=== PATIENT | female | born 1980 | race Caucasian/White ===

== ENCOUNTER 2021-11-17 11:21 | Outpatient (CLI) | payer OTHER, SELFPAY ==
--- NOTE | 2021-11-17 11:31 | US_ITS ---
STUDY: ULTRASOUND OF THE FEMALE PELVIS - COMPLETE REASON FOR EXAM: Female, 41 years old. Abnormal uterine bleeding, three-month follow-up. LMP: 10/27/2021. TECHNIQUE: Transabdominal and Transvaginal TECHNICAL QUALITY: Adequate. COMPARISON: None. FINDINGS: The uterus is anteverted and is in a midline position. The uterus measures 1 x 5.0 cm. There is a Nabothian cyst of the cervix. The endometrium measures 6.1 mm in thickness, and is fluid distended and mildly heterogenous. There is a questionable 1.0 x 0.8 x 1.3 cm hyperechoic mass in the anterior endometrial wall. This is best seen on image 38 of the transvaginal images.. There is a 2.2 x 1.5 x 1.4 cm subserosal fibroid in the posterior fundus. I.U.D. - The patient does not have an I.U.D. The right ovary is visualized. The right ovary measures 3.8 x 2.6 x 1.7 cm. There are multiple follicles of the right ovary without a dominant cyst. There is no visualized right adnexal mass or complex lesion. There is normal arterial and normal venous vascularity. The left ovary is visualized. The left ovary measures 4.5 x 2.1 x 3.2 cm. There are multiple follicles of the left ovary with a dominant 3.3 x 1.9 x 1.6 cm simple cyst.. There is no visualized left adnexal mass or complex lesion. There is normal arterial and normal venous vascularity. There is no fluid in the cul-de-sac. The urinary bladder appears grossly normal. Polycystic ovary disease: No. US/Transvaginal Non- IMPRESSION: 1. Minimal fluid in endometrial cavity. There is question of a mass in the anterior fundal endometrium. 2. Left ovarian cyst. Electronically Signed: Vincent Dempsey DO at 16:59 EST ,
--- NOTE | 2021-11-17 11:31 | US_ITS ---
STUDY: ULTRASOUND OF THE FEMALE PELVIS - COMPLETE REASON FOR EXAM: Female, 41 years old. Abnormal uterine bleeding, three-month follow-up. LMP: 10/27/2021. TECHNIQUE: Transabdominal and Transvaginal TECHNICAL QUALITY: Adequate. COMPARISON: None. FINDINGS: The uterus is anteverted and is in a midline position. The uterus measures 1 x 5.0 cm. There is a Nabothian cyst of the cervix. The endometrium measures 6.1 mm in thickness, and is fluid distended and mildly heterogenous. There is a questionable 1.0 x 0.8 x 1.3 cm hyperechoic mass in the anterior endometrial wall. This is best seen on image 38 of the transvaginal images.. There is a 2.2 x 1.5 x 1.4 cm subserosal fibroid in the posterior fundus. I.U.D. - The patient does not have an I.U.D. The right ovary is visualized. The right ovary measures 3.8 x 2.6 x 1.7 cm. There are multiple follicles of the right ovary without a dominant cyst. There is no visualized right adnexal mass or complex lesion. There is normal arterial and normal venous vascularity. The left ovary is visualized. The left ovary measures 4.5 x 2.1 x 3.2 cm. There are multiple follicles of the left ovary with a dominant 3.3 x 1.9 x 1.6 cm simple cyst.. There is no visualized left adnexal mass or complex lesion. There is normal arterial and normal venous vascularity. There is no fluid in the cul-de-sac. The urinary bladder appears grossly normal. Polycystic ovary disease: No. US/Pelvic (Non ) IMPRESSION: 1. Minimal fluid in endometrial cavity. There is question of a mass in the anterior fundal endometrium. 2. Left ovarian cyst. Electronically Signed: Vincent Dempsey DO at 16:59 EST ,
== END 2021-11-17 23:59 | disposition home or self-care (01) ==
LOC: US 11:29
PROVIDERS: PCP Family Medicine; Referring Provider Obstetrics & Gynecology; Visit Provider Obstetrics & Gynecology
DX: N93.9 Abnormal uterine and vaginal bleeding, unspecified (principal)
CPT/HCPCS: 76830; 76856

== ENCOUNTER 2021-11-30 13:40 | Day surgery (SDC) | payer OTHER, SELFPAY ==
[2021-11-26 13:39] LABS: Hematocrit 42.8 % (37-47); Hemoglobin 13.9 g/dL (12.0-15.0); Mean Corp Hgb Conc 32.5 g/dL (32-36); Mean Corpuscular Hgb 27.6 pg (27.0-32.0); Mean Corpuscular Volume 84.9 fL (81-99); Mean Platelet Vol. 9.7 fl (6.2-12.0); Platelet Count 373 K/mm3 (150-450); RBC Distribution Width SD 43.2 fl (35.1-43.9); Red Blood Count 5.04 M/mm3 (4.2-5.4); White Blood Count 8.6 K/mm3 (4.4-11.0)
[2021-11-30] VITALS (7 sets, daily range): BP systolic 103–120; BP diastolic 71–85; PULSE 74–96; RESP 16; TEMP 36.5–36.7; O2SAT 96–100; BMI 30.7
--- NOTE | 2021-11-30 | EMB_PTH ---
PATIENT: CORBY HARO LOC: [facility] [place][id number] AGE/SX: 41/F ROOM: RE11/30/[address]: Dr. 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 Transition endometrium. AM:antonio 12/02/2021 MICROSCOPIC DESCRIPTION Slides are reviewed. GROSS DESCRIPTION Received in fixative is one container labeled with the patient's name and designated endometrial curettings. The specimen consists of multiple irregular fragments of light to dark jennings soft tissue that in aggregate measure 2.2 x 2 x 0.2 cm. The specimen is totally submitted in one cassette. / AM:antonio 12/01/2021 TC:5 CPT: 23042
--- NOTE | 2021-11-30 08:20 | HP.PCM_ITS ---
History and Physical Date of Admission: 11/30/21 :1980 Provider:Dr. Gena Harris, DOAge/Sex: 41/F [facility] Vital Signs 11/19/21 14:44 Height 5 ft 3 in Weight: 175 lb BMI 30.9 BP 134/90 H Intake Visit Reasons: Consult from US possible surgery Disability Program Navigator Required: No Is patient in pain?: No Allergies No Known Allergies Allergy (Verified 11/19/21 14:45) Medications medroxyprogesterone 10 mg tablet 10 mg PO DAILY 30 Days #30 tab 08/13/21 [Rx Confirmed 11/19/21] ibuprofen 800 mg tablet 800 mg PO Q8H PRN 7 Days #21 tab 11/19/21 [Rx Confirmed 11/19/21] methocarbamol 750 mg tablet 750 mg PO Q8H 3 Days #9 tab 11/19/21 [Rx Confirmed 11/19/21] Post menopausal: No Patient : No : No PFSH Surgical History H/O section H/O wisdom tooth extraction History of dental surgery Hx of appendectomy Family History Other Diabetes Hypertension Social History adopted: No household members: family housing: house number of children: 2 current occupation: [employer] pets and animals: Yes Smoking Status: Never smoker second hand exposure: No alcohol intake: current substance use type: does not use seatbelt use: always do you feel safe at home: Yes additional social history: - [facility] Details: CORBY HARO is a 41 year old who presents for discussion about hysteroscopy D&C. She states that she is ready to proceed at this time mostly because she is experiencing lower pelvic pain and she is hoping the polyp in her uterus is causing it. Ultrasound showed an unknown mass like structure at the fundus that is approximately 1 cm. Pregancy History 2 Elective abortions Hx Para 2 Spontaneous abortions Hx # Term Pregnancies Ectopic pregnancies Hx # Pregnancies Multiple births # of living children 2 Past Pregnancies Del. Date Name GA/Weeks Outcome Route Bth Weight Infant Gen Labor Lgth Anesthesia Del Locatn Provider FOB Unknown 2004- Cynthia Unknown 2012- Hillary ROS Const ROS Unobtainable: All systems reviewed & are unremarkable except as noted in H Resp Resp: Reports system reviewed and no additional complaints, except as documented; Denies cough GI GI: Reports as per HPI Psych Psych: Reports system reviewed and no additional complaints, except as documented Exam Const General: cooperative, healthy appearing, comfortable and no acute distress Resp Effort & Inspection: normal respiratory effort Skin General: no rashes or lesions noted Psych Appearance: grossly normal Speech and Movement: speech and movement normal Coding Level of Care Code Off vis,est,level 4 Diagnoses Menorrhagia N92.0 Pelvic pain R10.2 Assessment and Plan Assessment and Plan (1) Menorrhagia: Status: Acute Comment: 1 cm polyp in endometrium on ultrasound 07/29/21 (2) Pelvic pain: Status: Acute Plan - Dr. Gena Harris DO: plan to proceed with hysteroscopy D&C - risks, benefits, and alternative discussed consent form signed. pt prefers muscle relaxor and motrin for post op pain control. rx sent to pharmacy. plan for surgery on 11/30/21 Plan Details Other Medications: New: methocarbamol 750 mg PO Q8H 3 days 9 tabs 0RF cramping ibuprofen 800 mg PO Q8H 7 days PRN 21 tabs 0RF pain UPDATE- I have seen the patient and performed any clinically relevant updates to the history and physical exam. Gena Harris DO
[2021-11-30] MEDS: Lactated Ringers 1,000 ML 125 ML IV (14:08)
[2021-11-30 14:12] LABS: Internal QC Validated? YES +Cl - CLEAR BKGD; Pregnancy, Urine Negative Negative
--- NOTE | 2021-11-30 15:26 | PCM.DC ---
Discharge Instructions Diet Discharge Diet: No restrictions Activity Discharge Activity: Return to Normal Activity, May Shower and May Take a Tub Bath (after 1 week) May resume sexual activity in: 1-2 weeks Weight Bearing Status: Weight bearing as tolerated Lifting Restrictions: none Dressing / Incision Call your doctor if you observe: Fever of 101 or Higher, Using more than 1 pad per hour, Shortness of breath and Uncontrolled pain Follow Up Care Please Follow Up With: Gena Harris DO When: Call [phone] to schedule appointment. Test Results: Test results from this visit will be discussed in further detail at your follow-up appointment, if applicable. Discharge Plan Admission Primary Reason for Your Visit: hysteroscopy D&C Attending Provider: Gena Harris Primary Care Provider: Molly Leon Discharge Orders/Prescriptions Prescriptions: New ibuprofen 800 mg tablet 800 mg PO Q8H PRN (Reason: pain) 7 Days Qty: 30 RF: 0 Continued medroxyprogesterone [Provera] 10 mg tablet 10 mg PO DAILY 30 Days Qty: 30 RF: 3 Referrals / Follow Up: Molly Leon [Primary Care Provider] - Disposition Disposition (needs filled in before D/C Order can be placed): Home, Self Care
--- NOTE | 2021-11-30 15:28 | PCM.OP.BLANK ---
Problems Associated Problem List Diagnoses (1) Menorrhagia: Operative Report Date of Procedure: 11/30/21 preoperative diagnosis: abnormal uterine bleeding, ultrasound finding of mass at fundus Postoperative diagnosis:abnormal uterine bleeding, ultrasound finding of mass at fundus Surgeon: Dr. Gena Harris DO EBL: minimal urine output: 30cc findings: atrophic appearing uterus specimens removed: endometrial curettings Details of the procedure: Patient was prepped and draped in a normal sterile fashion under MAC anesthesia. A weighted speculum was placed in the vagina and the anterior lip of the cervix was grasped with a single-tooth tenaculum. A paracervical block was placed with 1% lidocaine. Cervix was progressively dilated to allow passage of a 5 mm hysteroscope. The lining was fully visualized and noted to have a small polyp like structures at the fundus and posterior aspect. Uterine sounded to 8 cm. Curettage was performed and specimen was sent to pathology. All instruments were removed from the vagina and excellent hemostasis was noted. Patient was awoken and taken to recovery in stable condition. Multi Select Codes Urinary/Genital Urinary/Genital CPT Codes: 65496 Hysteroscopy,EMC, Polypectomy
[2021-11-30] MEDS: Lidocaine 1% (20 ml mdv) 20 ML Vial (15:50)
[2021-11-30] MEDS: Ketorolac 30 MG/ML Syringe IV (16:18)
== END 2021-11-30 23:59 | disposition home or self-care (01) ==
LOC: SDC 13:41 → AC 13:42
PROVIDERS: PCP Family Medicine; Referring Provider Obstetrics & Gynecology; Visit Provider Obstetrics & Gynecology
PROC: 0UDB8ZZ Extraction of Endometrium, Via Natural or Artificial Opening Endoscopic (ICD-10-PCS; CPT 58558; principal; 2021-11-30 15:10)
DX: N85.01 Benign endometrial hyperplasia (principal); N92.0 Excessive and frequent menstruation with regular cycle
CPT/HCPCS: 58558; 00952; 36415; 81025; 85027; 86850; 86900; 86901; 87426; 88305; C9803; J7120; J2405

== ENCOUNTER 2022-05-03 16:38 | Observation (INO) | payer OTHER, SELFPAY ==
[2022-05-03] VITALS (22 sets, daily range): BP systolic 93–127; BP diastolic 61–81; PULSE 61–92; RESP 11–18; TEMP 36.3–37.6; O2SAT 93–100; BMI 29.8
[2022-05-03] MEDS: Scopolamine 1mg/72hr Patch 1 PATCH TD (06:25)
[2022-05-03] MEDS: Phenazopyridine 95 MG Tablet 190 MG PO (06:26)
[2022-05-03] MEDS: Acetaminophen 500 MG Tablet 1000 MG PO ×3 (06:26→23:03)
[2022-05-03] MEDS: Celecoxib 200 MG Capsule 400 MG PO (06:26)
[2022-05-03] MEDS: Gabapentin 600 MG Tablet PO (06:27)
[2022-05-03] MEDS: Enoxaparin 40 MG/0.4 ML Syringe SC (06:28)
[2022-05-03] MEDS: dexAMETHasone 10 MG/ML Vial 8 MG IV (06:28)
[2022-05-03] MEDS: Lactated Ringers 1,000 ML 40 ML IV ×2 (06:45→13:41)
[2022-05-03 06:46] LABS: Hematocrit 47.1 % (37-47); Hemoglobin 15.6 g/dL (12.0-15.0); Mean Corp Hgb Conc 33.1 g/dL (32-36); Mean Corpuscular Hgb 29.2 pg (27.0-32.0); Mean Corpuscular Volume 88.2 fL (81-99); Mean Platelet Vol. 9.6 fl (6.2-12.0); Platelet Count 354 K/mm3 (150-450); RBC Distribution Width CV 12.3 % (11.6-14.6); RBC Distribution Width SD 39.7 fl (35.1-43.9); Red Blood Count 5.34 M/mm3 (4.2-5.4)
[2022-05-03 06:50] LABS: Internal QC Validated? YES +Cl - CLEAR BKGD
[2022-05-03 06:51] LABS: Pregnancy, Urine Negative Negative
[2022-05-03 06:56] LABS: Magnesium 2.1 mg/dL (1.6-2.6)
--- NOTE | 2022-05-03 07:18 | PCM.HP.BLA ---
History and Physical Date of Admission: 05/03/22 R#: [id number] Acct: [id number] Name:CORBY BEAULIEU Rep #: [id number] : 1980 ? ? Provider: Dr. Gena Harris DO Age/Sex:? 42/F ? ? [place] [facility] [place]: Signed Intake Vital Signs ? 03/25/2216:00 04/08/2212:58 04/08/2213:00 Height 5 ft 3 in 5 ft 3 in 5 ft 3 in Weight: ? 170 lb 6 oz ? BMI ? 30.2 ? BP ? 110/70 ? Intake Visit Reasons:?decided to proceed with surgical management Weir Fisherman Required: No Is patient in pain?: No Allergies No Known Allergies Allergy (Verified 04/08/22 12:58) Medications medroxyprogesterone 10 mg tablet (Provera) 10 mg PO DAILY 30 days #30 tabs 12/17/21 [Rx Confirmed 04/08/22] Post menopausal: No Patient : No : No PFSH Medical History?(Updated 04/08/22 @ 15:[address] Gena Harris, ) Heartburn History of echocardiogram Migraine headache PONV (postoperative nausea and vomiting) Surgical History?(Updated 04/08/22 @ 15:[address] Gena Harris DO) H/O section H/O wisdom tooth extraction History of dental surgery Hx of appendectomy S/P dilation and curettage (~11/30/21) Family History? Other Diabetes Hypertension Social History? adopted:? No household members:? family housing:? house number of children:? 2 current occupation:? [employer] pets and animals:? Yes Smoking Status:? Never smoker second hand exposure:? No alcohol intake:? current substance use type:? does not use seatbelt use:? always do you feel safe at home:? Yes additional social history:? - [facility] decided to proceed with surgical management Details: CORBY HARO is a 42 year old who presents for discussion about ongoing pelvic pain. She is status post D&C removal of uterine polyp, which contains simple non-atypical hyperplasia and she is taking progesterone therapy for this. She is ready to proceed with a more definitive treatment option to avoid use of progesterone and also help with ongoing pelvic pain issues. There is an ongoing suspicion for either scar tissue pain from prior sections vs endometriosis. The ultrasound shows a 9.5 x 4.87 x 6.05 cm uterus Pregancy History ? ? ? 2 ? Elective abortions ? Hx Para ? ? ? 2 ? Spontaneous abortions ? Hx # Term Pregnancies ? Ectopic pregnancies ? Hx # Pregnancies ? Multiple births ? # of living children ? ? ? 2 Past Pregnancies Del. Date Name GA/Weeks Outcome Route Bth Weight Gen Labor Lgth Anesthesia Del Locatn Provider FOB Unknown 2003- Cynthia ? Unknown 2012- Hillary ? ROS Const ROS Unobtainable: All systems reviewed & are unremarkable except as noted in H Resp Resp: Reports system reviewed and no additional complaints, except as documented; Denies cough GI GI: Reports as per HPI Psych Psych: Reports system reviewed and no additional complaints, except as documented Exam Const General: cooperative, healthy appearing, comfortable and no acute distress Resp Effort & Inspection: normal respiratory effort Skin General: no rashes or lesions noted Psych Appearance: grossly normal Speech and Movement: speech and movement normal Coding Level of Care Code Off vis,est,level 5 Diagnoses History of dilation and curettage? Z98.890 Migraines? G43.909 Seizures? R56.9 Menorrhagia? N92.0 Pelvic pain? R10.2 H/O section? Z98.891 Hx of appendectomy? Z90.49 Endometrial hyperplasia without atypia? N85.00 Assessment and Plan Assessment and Plan (1) History of dilation and curettage: ?Status:?Acute ?Comment: for abnormal uterine thickening. finding was benign hormonal affect (2) Migraines: ?Status:?Acute (3) Seizures: ?Status:?Acute ?Comment: had mini stoke like symptoms in 2019- r/o stroke questioned whether is was a seizure of not; Neurologist- Dr. Nuria Butterfield (4) Menorrhagia: ?Status:?Acute ?Comment: 1 cm polyp in endometrium on ultrasound 07/29/21 (5) Pelvic pain: ?Status:?Acute (6) H/O section: ?Status:?Acute ?Comment: 2003, 2012 (7) Hx of appendectomy: ?Status:?Acute ?Comment: 1990 (8) Endometrial hyperplasia without atypia: ?Status:?Acute Plan After discussing the patient's diagnosis and treatment plan options, patient wishes to proceed with surgical management.? I have discussed with the patient the risks, benefits, and alternatives of the procedure which include but are not limited to risks of anesthesia, bleeding, infection, possible damage to bowel, bladder, or surrounding vasculature which could lead to additional surgery to evaluate any complications.? Patient agrees to procedure and wishes to proceed.? ACOG/uptodate references given for additional information regarding procedure.? after a very long discussion about surgical options vs non-surgical options, the plan is to proceed with a total robotic hysterectomy, bilateral salpingectomy, and cystoscopy. UPDATE- I have seen the patient and performed any clinically relevant updates to the history and physical exam. Gena Harris, DO
--- NOTE | 2022-05-03 07:21 | DCINST_ITS ---
Discharge Instructions Diet Discharge Diet: No restrictions Activity May resume sexual activity in: 6 weeks Weight Bearing Status: Full weight bearing Dressing / Incision Call your doctor if your incision/area has: Continuous Slow Oozing, Sudden Increased Bleeding, Increased Pain/ Swelling, Increased Redness and Foul Smelling Discharge Call your doctor if you observe: Fever of 101 or Higher, Using more than 1 pad per hour, Shortness of breath, Chest pain and Uncontrolled pain Suture Line Care: Avoid Pulling/Pushing and Avoid Pinching/Bending Remove Dressing in: 1 week (if present) Cleanse incision/area with: Soap & Water and Keep Dressing Clean & Dry Follow Up Care Please Follow Up With: Gena Harris DO When: Call to make an appointment with your doctor for a postop visit in 2 and 6 weeks Test Results: Test results from this visit will be discussed in further detail at your follow- up appointment, if applicable. Discharge Plan Admission Primary Reason for Your Visit: hysterectomy Attending Provider: Gena Hraris Primary Care Provider: Molly Leon Discharge Orders/Prescriptions Prescriptions: New ibuprofen 600 mg tablet 600 mg PO Q6H PRN (Reason: pain) 7 Days Qty: 28 0RF Rx Instructions: one tab every 6 hrs as needed for mild to moderate pain oxycodone-acetaminophen [Percocet] 5-325 mg tablet 1 tab PO Q4H PRN (Reason: pain) 7 Days Qty: 30 0RF Discontinued medroxyprogesterone [Provera] 10 mg tablet 10 mg PO DAILY 30 Days Qty: 30 12RF Referrals / Follow Up: Molly Leon [Primary Care Provider] - Disposition Disposition (needs filled in before D/C Order can be placed): Home, Self Care
--- NOTE | 2022-05-03 07:30 | HYST_PTH ---
PATIENT: CORBY HARO LOC: [facility] U#:[id number] AGE/SX: 42/F ROOM: PA305 RE05/03/[address]: Dr. Gena Harris DO : 1980 BED: 1 DIS: 05/04/2022 SPEC #: [id number] RECD: 05/03/22 11:20 STATUS: MITA GARZARohan #: [id number] DEBBIE: 05/03/22 07:[address]: Gena Harris DEPT: SURGICAL PATHOLOGY RECD BY: Dale Michael ENTERED: 05/03/22 11:56 SP TYPE: HYSTERECT OTHR DR: Molly Leon Tissues: Uterus, NOS Procedures: Surgery Specimen Level V HEADER OPERATION: ERAS, laparoscopic robotic hysterectomy, bilateral salpingectomy PRE-OP DIAGNOSIS: Menorrhagia, pelvic pain TISSUE SUBMITTED: Uterus, cervix, bilateral fallopian tubes MICROSCOPIC DIAGNOSIS Uterus, cervix and bilateral fallopian tubes, hysterectomy and bilateral salpingectomy: Cervix ? chronic cystic cervicitis. Endometrium ? proliferative endometrium. Myometrium ? intramural and subserosal leiomyomas. Right fallopian tube - no pathologic diagnosis. See comment. Left fallopian tube - no pathologic diagnosis. SJ:rg 05/04/2022 COMMENT The right fallopian tube also shows a small adherent piece of ovarian tissue with physiologic follicular cyst. MICROSCOPIC DESCRIPTION Slides are reviewed. GROSS DESCRIPTION Received in fixative is one container labeled with the patient's name and designated uterus, cervix, bilateral fallopian tubes. The specimen consists of a hysterectomy specimen consisting of uterus with cervix, attached left fallopian tube and portion of attached right fallopian tube and portion of detached right fallopian tube. The uterus with cervix weighs 99 gm and measures 9 x 7 x 4.5 cm. The serosal surface is focally ragged. A minute subserosal nodule is also noted. The ectocervical mucosa is unremarkable. The external os is oval in contour. The endocervical canal measures 3 cm in length and the endocervical mucosa is jennings, glistening and unremarkable. The triangular endometrial cavity measures 4.5 cm in length and 3 cm in width. The endometrium is jennings, glistening without any mass lesion and measures 0.1 cm in thickness. Sections of the uterine wall reveal one intramural and one subserosal nodular mass. The intramural mass measures 0.5 cm in greatest dimension and the subserosal mass measures 0.3 cm in greatest dimension. The uterine wall measures up to 2.5 cm in thickness. Attached portion of right fallopian tube measures 3 cm in length and 0.5 cm in diameter. The detached portion of right fallopian tube measures 2.5 cm in length and 0.5 cm in diameter. The fimbrial end is identified in the detached portion of the fallopian tube. Sections reveal unremarkable cut surfaces. The left fallopian tube measures 6.5 cm in length and 0.7 cm in diameter. The fimbrial end is identified. Sections reveal unremarkable cut surfaces. Biomedical Engineering Director sections are submitted in nine cassettes as follows: 1 - anterior cervix, 2 - posterior cervix, 3 & 4 - anterior uterine wall, 5 & 6 - posterior uterine wall, 7 ? intramural and subserosal nodular masses and ragged area on the serosal surface, 8 ? right fallopian tube, 9 ? left fallopian tube. / OSBALDO:antonio 05/03/2022 TC:1 CPT: 38658
[2022-05-03] MEDS: Cefazolin 2 GM in 0.9% Normal Saline 100 ML IV (07:42)
[2022-05-03 08:35] LABS: Bedside Glucose 129 mg/dL (74-106)
[2022-05-03] MEDS: Bupivacaine 0.25% 30 ML Vial (08:50)
--- NOTE | 2022-05-03 09:18 | OP.PCM_ITS ---
Problems Associated Problem List Diagnoses (1) Menorrhagia: (2) Pelvic pain: (3) Endometrial hyperplasia without atypia: (4) H/O section: (5) Hx of appendectomy: Operative Report Date of Procedure: 05/03/22 Preoperative diagnosis: endometrial hyperplasia, abnormal uterine bleeding, pelvic pain Postoperative diagnosis: endometrial hyperplasia, abnormal uterine bleeding, pelvic pain, endometriosis Procedure: Total robotic hysterectomy bilateral salpingectomy and cystoscopy Anesthesia: General endotracheal intubation Estimated blood loss: 50cc Urine output:200cc Drains: None Implanted material: None Complications: None Findings: 9 size uterus, normal appearing right ovary and tube. Left ovarian endometrioma, ovary enlarged and adherent to the posterior uterus, right hydrosalpinx. On exploration of the abdominal cavity the uterus, bowel, and liver were found to be normal. There was a small amount of omental adhesions to the anterior abdominal wall at the left upper and right upper quadrants Cystoscopy showed no evidence of leaking at approximately 250 cc of normal saline, positive ureteral orifices and jet flow are seen and no suture material was appreciated in the bladder. Specimens removed: Uterus and cervix, Bilateral tubes Reason for surgery: This is a 42-year-old G2, P2 who presented to my office with history of Pelvic pain, abnormal bleeding, and simple endometrial hyperplasia without atypia. The planned procedure is for a robotic hysterectomy the risks benefits and alternatives were discussed with the patient the patient had a clear understanding of the procedure and a consent form was signed. Procedure: The patient was placed in the dorsal low lithotomy position and prepped and draped in the normal sterile fashion both abdominally and in the perineum. Her legs were placed in stirrups a Anna catheter was inserted into the urethra without difficulty. A weighted speculum was placed in the vagina and a single- tooth tenaculum was used to grasp the anterior lip of the cervix. An advincula uterine manipulator was inserted through the cervix without complication. It was then tied into place at the 2 and 10:00 locations on the cervix. Gloves were changed and attention was turned towards the abdomen. Approximately 20 cm above the pubic symphysis in the midline, and after Marcaine injection, a [8] mm incision was made. An 8 mm trocar was inserted through the laparoscope, then inserted into the abdomen under direct visualization using the laparoscope. Good abdominal placement was noted and no complications were appreciated. An air seal device was utilized to create pneumoperitoneum. At 13 cm lateral to the midline on the left and right sides 8 mm accessory ports were placed. Next a left upper quadrant 8 mm bacteriology research assistant port site was placed. The patient was placed in steep Trendelenburg position. The robot was docked. The hysterectomy was initiated first by taking down the round ligament on each side using the vessel sealer device. The right ovary was noted to be adherenet to the uterus and with gentle traction, a chocolate cyst ruptured. The right fallopian tube was noted to be dilated and filled with fluid. The broad ligament was then and taken down using the vessel sealer device. Next the bladder flap and scar tissue from previous section was taken down without complication. This was done using monopolar cautery to the level of the cervical vaginal junction. After the bladder flap was created, uterine vessels were then isolated and cauterized using the vessel sealer device and EndoShears. At this point the uterine vessels were taken down further starting from the ascending branch, dissecting along the edges of the cervix to the level of the cervical vaginal junction with hemostasis appreciated. The cervical vaginal junction was then using monopolar cautery in a circumferential pattern across the superior aspect of the cervix. The specimen was delivered through the vagina and sent to pathology. The remaining vaginal cuff was then closed using OV lock suture. This was performed in a running technique. Excellent hemostasis was obtained and good closure was noted. Irrigation was then performed. All operative sites were noted to be hemostatic. A cystoscopy was performed with a 70 degree cystoscope through the urethra into the bladder without complication. The bladder was instilled with approximately 250 cc of normal saline. Intraoperative images were made. Ureteral orifices and jets were identified. No suture material was appreciated in the bladder. The bladder was then drained and cystoscope was removed. The abdominal cavity was again examined using the laparoscope after the robot was undocked. All operative sites were noted to be hemostatic. The trochars were removed under direct visualization without complication and pneum operitoneum was reduced. At this point the skin was then closed using 4-0 Monocryl subcuticular stitch and sealed with surgical glue. The patient tolerated the procedure well sponge lap and needle counts were correct x2 the patient was taken to the recovery room in stable condition. Multi Select Codes Urinary/Genital Urinary/Genital CPT Codes: 57245 Cystoscopy and 63254 TLH+BS/O <250gr uterus
[2022-05-03] MEDS: Lactated Ringers 1,000 ML 100 ML IV ×2 (14:30→20:59)
[2022-05-03] MEDS: Ketorolac 30 MG/ML Syringe IV ×3 (14:39→23:10)
[2022-05-03] MEDS: HYDROmorphone Inj 0.2 MG/ML SYRINGE IV (16:58)
[2022-05-03] MEDS: HYDROcodone Bitartrate/Apap 5/325 Tablet PO (20:58)
[2022-05-03] MEDS: Docusate Sodium 100 MG Capsule PO (20:58)
[2022-05-03] MEDS: 0.9% Saline Lock 10 ML Syringe IV (23:04)
[2022-05-04 04:15] VITALS: BP 93/63; PULSE 63; RESP 18; TEMP 36.5; O2SAT 98
[2022-05-04] MEDS: Ketorolac 30 MG/ML Syringe IV (05:02)
[2022-05-04 06:05] LABS: Hematocrit 42.1 % (37-47); Hemoglobin 13.4 g/dL (12.0-15.0); Mean Corp Hgb Conc 31.8 g/dL (32-36); Mean Corpuscular Hgb 28.7 pg (27.0-32.0); Mean Corpuscular Volume 90.1 fL (81-99); Mean Platelet Vol. 9.8 fl (6.2-12.0); Platelet Count 333 K/mm3 (150-450); RBC Distribution Width CV 12.3 % (11.6-14.6); Red Blood Count 4.67 M/mm3 (4.2-5.4); White Blood Count 14.1 K/mm3 (4.4-11.0)
[2022-05-04] MEDS: Acetaminophen 500 MG Tablet 1000 MG PO (06:14)
[2022-05-04 07:40] VITALS: O2SAT 97
[2022-05-04 07:57] VITALS: BP 97/68; PULSE 68; RESP 16; TEMP 36.8; O2SAT 97
--- NOTE | 2022-05-04 08:11 | PN.OBGYN_ITS ---
Subjective Subjective Patient is laying in bed comfortably without complaints. She states that she slept on an off during the night, ate dinner and kept it down. Still feels dizzy when stands up. Objective Data Objective Data Vital Signs: Vital Signs Temp Pulse Resp BP Pulse Ox O2 Del Method O2 Flow Rate 98.3 F 68 16 97/68 97 Room Air 2 05/04/22 07:57 05/04/22 07:57 05/04/22 07:57 05/04/22 07:57 05/04/22 07:57 05/04/22 07:57 05/03/22 11:45 Oxygen Flow Rate (L/min) 2 Oxygen Delivery Method Room Air Weight: 168 lb 6.931 oz Body Mass Index (BMI) 29.8 Intake & Output: Intake and Output for Last 24 Hours 05/02/22 05/03/22 05/04/22 23:59 23:59 23:59 Intake Total 2360.33 / 2360.33 926.67 / 926.67 Output Total 600 / 600 Balance 1760.33 / 1760.33 926.67 / 926.67 Lab / Micro Data Result Diagrams: 05/04/22 05:25 Labs: Laboratory Results - last 24 hr 05/03/22 06:16: POC Glucose 129 H 05/04/22 05:25: WBC 14.1 H, RBC 4.67, Hgb 13.4, Hct 42.1, MCV 90.1, MCH 28.7, MCHC 31.8 L, RDW Std Deviation 40.0, RDW Coeff of Ritchie 12.3, Plt Count 333, MPV 9.8 ROS Constitutional Constitutional: Reports systems reviewed and no addt'l complaints, except as d ocumented Cardiovascular Cardiovascular: Denies chest pain, dyspnea or irregular heart rhythm Respiratory/Chest Respiratory/Chest: Denies cough, pain on inspiration or shortness of breath at rest Gastrointestinal Gastrointestinal: Denies abdominal pain, nausea or vomiting Genitourinary Genitourinary: Denies burning urination Musculoskeletal Musculoskeletal: Denies muscle cramps, muscle spasms or muscle weakness Neurologic Neurologic: Denies confusion, dizziness, headache(s) or lack of coordination Psychiatric Psychiatric: Denies anxiety, behavioral changes or depression Physical Exam HEENT normocephalic Resp normal respiratory effort and normal air movement GI soft to palpation, non-tender and non-distended Rectal Exam: other Other Details: Incision is clean, dry, and intact no CVA tenderness Extremity normal to inspection General Extremity: edema bilateral (trace ) Assessment & Plan (1) Status post hysterectomy: PLAN: Plan patient is s/p robotic hyst POD # 1 1. routine ERAS protocol postop care- increase ambulation, encourage oral intake and oral control of pain. scds for dvt prophylaxis, patient stable for discharge to home.
[2022-05-04 08:58] VITALS: O2SAT 97
--- NOTE | 2022-05-04 10:30 | PHA.DC.MC ---
Pharmacy Service has performed discharge medication reconciliation and counseling for this patient. 1. IBUPROFEN 600MG PO Q6H PRN MILD TO MODERATE PAIN 2. PERCOCET 5/325MG PO Q4H PRN PAIN The patient's discharge medication list was reviewed for discrepancies and discrepancies were resolved. Home Medications ibuprofen 600 mg tablet 600 mg PO Q6H PRN pain 7 days #28 tabs 05/03/22 oxycodone-acetaminophen 5 mg-325 mg tablet (Percocet) 1 tab PO Q4H PRN pain 7 days #30 tabs 05/03/22 The patient was counseled on the following discharge medications and changes in medications for homegoing were reviewed. The Reason for Use, instructions for use, and potential side effects were reviewed for all new medications. The patient's questions regarding all of their medications were answered. The patient was able to verbally demonstrate an understanding of their discharge medications.
[2022-05-04] MEDS: Docusate Sodium 100 MG Capsule PO (10:37)
== END 2022-05-04 11:10 | disposition home or self-care (01) ==
LOC: SDC 16:56 → MS3 05-04 10:52
PROVIDERS: Anesthesiology; Admitting Provider Obstetrics & Gynecology; PCP Family Medicine; Referring Provider Obstetrics & Gynecology; Visit Provider Obstetrics & Gynecology
PROC: 0UT90ZZ Resection of Uterus, Open Approach (ICD-10-PCS; CPT 58552; principal; 2022-05-03 07:10)
DX: N85.01 Benign endometrial hyperplasia (principal); N92.0 Excessive and frequent menstruation with regular cycle; N93.9 Abnormal uterine and vaginal bleeding, unspecified; D25.2 Subserosal leiomyoma of uterus; D25.1 Intramural leiomyoma of uterus; Z79.890 Hormone replacement therapy
CPT/HCPCS: 58552; S2900; 00944; 36415; 81025; 82962; 83735; 85027; 86850; 86900; 86901; 88307; 96361; 96374; 96376; 99218; 99251; J7120; A4216; G0378; G0463; J2405

== ENCOUNTER → 2024-07-22 | Outpatient (CLI) | payer BC, SELFPAY ==
--- NOTE | 2024-07-22 11:20 | US_ITS ---
STUDY: ULTRASOUND OF THE FEMALE PELVIS - LIMITED REASON FOR EXAM: Female, 44 years old pain status post hysterectomy. TECHNIQUE: Transabdominal and Transvaginal TECHNICAL QUALITY: Adequate. COMPARISON: None. FINDINGS: Status post hysterectomy.. The right ovary measures 4.1 x 2.5 x 2.5 cm. 3 cm oval anechoic mass with increased through-transmission right ovary consistent with a corpus luteum cyst. There is no visualized right adnexal mass or complex lesion. There is normal arterial and normal venous vascularity. The left ovary measures 2.3 x 1.5 x 2.0 cm. There is no left ovarian cyst or ovarian mass. There is no visualized left adnexal mass or complex lesion. There is normal arterial and normal venous vascularity. There is minimal fluid in the cul-de-sac. US/Pelvic w/ Transvaginal IMPRESSION: 3 cm right ovarian dominant follicle or corpus luteum cyst. Status post hysterectomy. Electronically Signed: Madhav Camargo MD at 14:31 EDT ,
== END | disposition home or self-care (01) ==
LOC: US 11:16
PROVIDERS: PCP Family Medicine; Referring Provider Nurse Practitioner Women's Health; Visit Provider Nurse Practitioner Women's Health
DX: R12 Heartburn (principal)
CPT/HCPCS: 76830; 76856